=== PATIENT | female | born 1985 | race Two or more races ===

== ENCOUNTER 2020-11-04 15:09 | Outpatient (REF) | payer BC, SELFPAY | END 2020-11-04 15:10 | disposition home or self-care (01) | LOC: HO.LAB 15:09 | PROVIDERS: Visit Provider Internal Medicine | DX: Z20.822 Contact with and (suspected) exposure to COVID-19 (principal) | CPT/HCPCS: 36415; C9803; U0003 ==

== ENCOUNTER 2022-09-01 11:57 | Outpatient (REF) | payer BC, SELFPAY ==
--- NOTE | ~2022-09-01 | US_ITS ---
EXAMINATION: US OBSTETRICAL ULTRASOUND CLINICAL INFORMATION: Hemorrhage are seen in the . COMPARISON: None. LMP: 07/09/2022. Gestational age by maternal dates is 7 weeks 5 days. Estimated date of delivery by maternal dates is 2022. TECHNIQUE: Transabdominal ultrasound Department studded protocol. FINDINGS: There is a single intrauterine gestational sac measuring to 3.3 x 1.2 x 2.1 cm, there is however no pole or heart motion, no yolk sac, raising concern for possible pseudogestational sac or partial miscarriage. MATERNAL ADNEXA: There is a simple cyst in the left ovary 4.5 x 4.4 x 4.8 cm. There is complex cystic structure in the right ovary measuring 4 x 2.9 x 2.9 cm, this has some internal echo and peripheral vascular flow, although could be corpus luteal cyst cannot rule out the possibility of ectopic in the right clinical setting. US/US OB pelvic and transvaginal IMPRESSION: 1. Intrauterine cystic structure could be a gestational sac however no pole found, concerning for possible partial miscarriage, failed versus pseudogestational sac. 2. Complex cystic structure in the right adnexa with peripheral vascularity and internal echo, this could be exophytic corpus luteal cyst versus less likely ECTOPIC . Clinical correlation recommended, Attention to short-term follow-up ultrasound.. (Referring physician staff is being called, to be alerted of the above findings and recommendations.) DC
[2022-09-01 15:13] LABS: HCG Quantitative 50423 mIU/mL
[2022-09-01 17:25] LABS: CT PCR NOT DETECTED (Not Detect.); NG PCR NOT DETECTED (Not Detect.)
[2022-09-02 10:15] LABS: BV Int Neg Control Negative (Negative); BV Int Pos Control Positive (Positive)
[2022-09-03 23:47] LABS: HPV mRNA E6/E7 rflx Not Detected (Not Detected)
== END 2022-09-01 11:58 | disposition home or self-care (01) ==
LOC: HO.LNP 11:57
PROVIDERS: Visit Provider Advanced Practice Midwife
DX: O20.9 Hemorrhage in early pregnancy, unspecified (principal)
CPT/HCPCS: 76801; 76817; 84702; 86850; 86900; 87480; 87491; 87510; 87591; 87624; 87660; 88142

== ENCOUNTER 2022-09-01 12:37 | Outpatient (REF) | payer BC, SELFPAY | END 2022-09-01 12:38 | disposition home or self-care (01) | LOC: HO.US 12:37 | PROVIDERS: Visit Provider Advanced Practice Midwife | DX: Z13.89 Encounter for screening for other disorder (principal) ==

== ENCOUNTER 2022-09-03 08:46 | Outpatient (REF) | payer BC, SELFPAY ==
--- NOTE | ~2022-09-03 | US_ITS ---
EXAMINATION: US OBSTETRICAL ULTRASOUND CLINICAL INFORMATION: Questionable ectopic . HCG level 56,000, previously 50,000. COMPARISON: 09/01/2022. LMP: 07/09/2022. Gestational age by maternal dates is 8 weeks, 0 days. TECHNIQUE: Transabdominal and transvaginal imaging of the pelvic viscera performed utilizing grayscale and color Doppler technique with spectral analysis. FINDINGS: There is intrauterine gestational sac measuring 3.0 x 2.2 x 2.0 cm for a mean sac diameter of 2.35 cm corresponding to 7 weeks, 3 days. Previously, the gestational sac measures 3.3 x 1.2 x 2.1 cm for gestational age of 7 weeks, 1 days. No yolk sac or embryo is identified. Similar-appearing 1.4 cm thick-walled cystic structure in the right adnexa most compatible with a corpus luteum. There is a cyst containing low-level internal echoes within or adjacent to the right ovary as well, stable in size measuring approximately 3.5 x 1.7 x 3.0 cm, previously 4.5 x 3.5 x 2.4 cm. The right ovary is splayed around this cyst measuring 4.7 x 2.7 x 3.7 cm in total. Left ovary contains a cyst with a small amount of debris measuring 5.3 x 4.2 x 3.8 cm., Slightly smaller than on the prior examination. The left ovary is splayed along the periphery of the cyst. US/US OB pelvic and transvaginal IMPRESSION: * Intrauterine gestational sac redemonstrated, with size which would correspond to a gestational age of 7 weeks, 3 days. At this stage, a yolk sac and pole should be evident. There is no evidence of ectopic . There is a stable corpus luteum in the right ovary. As such, I suspect blighted ovum * No maternal adnexal mass or pelvic ascites.
== END 2022-09-03 08:47 | disposition home or self-care (01) ==
LOC: HO.US 08:46
PROVIDERS: PCP Internal Medicine Cardiovascular Disease; Visit Provider Obstetrics & Gynecology
DX: Z34.91 Encounter for supervision of normal pregnancy, unspecified, first trimester (principal); Z3A.08 8 weeks gestation of pregnancy
CPT/HCPCS: 36415; 76801; 76817; 84702

== ENCOUNTER 2022-09-08 10:05 | Outpatient (REF) | payer BC, SELFPAY ==
[2022-09-08 11:07] LABS: HCG Quantitative 9643 mIU/mL
== END 2022-09-08 10:06 | disposition home or self-care (01) ==
LOC: HO.LAB 10:05
PROVIDERS: PCP Internal Medicine; Visit Provider Obstetrics & Gynecology
DX: O02.1 Missed abortion (principal)
CPT/HCPCS: 36415; 84702

== ENCOUNTER 2022-09-27 13:46 | Outpatient (REF) | payer BC, SELFPAY ==
[2022-09-27 14:58] LABS: HCG Quantitative 103 mIU/mL
== END 2022-09-27 13:47 | disposition home or self-care (01) ==
LOC: HO.LAB 13:46
PROVIDERS: Visit Provider Obstetrics & Gynecology
DX: O02.1 Missed abortion (principal)
CPT/HCPCS: 36415; 84702

== ENCOUNTER 2022-10-13 15:45 | Outpatient (REF) | payer BC, SELFPAY ==
[2022-10-13 17:43] LABS: HCG Quantitative 6 mIU/mL
== END 2022-10-13 15:46 | disposition home or self-care (01) ==
LOC: HO.LAB 15:45
PROVIDERS: PCP Internal Medicine; Visit Provider Obstetrics & Gynecology
DX: O02.1 Missed abortion (principal)
CPT/HCPCS: 36415; 84702

== ENCOUNTER 2022-11-01 14:43 | Outpatient (REF) | payer BC, SELFPAY ==
[2022-11-01 15:42] LABS: HCG Quantitative < 2 mIU/mL
== END 2022-11-01 14:44 | disposition home or self-care (01) ==
LOC: HO.LAB 14:43
PROVIDERS: PCP Internal Medicine; Visit Provider Obstetrics & Gynecology
DX: O03.9 Complete or unspecified spontaneous abortion without complication (principal)
CPT/HCPCS: 36415; 84702

== ENCOUNTER 2023-09-26 09:20 | Outpatient (AMB) | payer OTHER, SELFPAY ==
[2023-09-26 09:29] VITALS: BP 140/84; BMI 29.4
--- NOTE | 2023-09-26 09:29 | MHC.OFFVIS ---
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 No complaints. Last Pap/HPV negative in 09/07 PFSH Family History Mother Rheumatoid arthritis Maternal Grandfather HTN (hypertension) Alcoholism Social History Household Members: Spouse Housing: House Alcohol intake: current Alcohol intake frequency: holidays/special occasions only Patient Tobacco Use Status: Never used Tobacco service: No Current occupational status: employed Current occupation: [employer] Sexual orientation: Straight/Heterosexual Gender identity: Female Female Reproductive History Menstrual Age of Menarche: 15 Duration of menses: 3-5 days Date of last menstrual period: 09/07/23 control method: none Total pregnancies: 1 Ab spontaneous: 1 Date of last pap smear: 09/02/22 (negative) History of abnormal pap smear: Yes (2016) Review of Systems Const All systems reviewed & are unremarkable except as noted in HPI and below Card Reports as per HPI Resp Reports as per HPI GI Reports as per HPI and Reports no additional complaints Reports as per HPI Physical Exam Vital Signs: BMI result Body Mass Index 29.4 Const General: cooperative, healthy appearing and comfortable Chest Chest palpation & inspection: normal inspection of the chest and normal palpation of entire chest wall Breast/axilla inspection: normal inspection of the breasts and normal inspection of the axillae Breast/axilla palpation: normal palpation of the breasts, normal palpation of the axillae and no axillary lymphadenopathy Resp Effort & Inspection: normal respiratory effort Auscultation: clear to auscultation bilaterally Percussion: percussion normal Cardio Palpation: normal PMI Rate: regular rate Rhythm: regular rhythm Heart sounds: no murmurs and no rubs Peripheral pulses: Peripheral pulses 2+ throughout GI Inspection: Yes normal to inspection Palpation (GI): Soft to palpation, nontender, no guarding, not rigid and No hepatosplenomegaly present Percussion: Yes normal to percussion Auscultation: normal bowel sounds Rectal Exam - Female: deferred General: Yes bladder normal to palpation External Female Exam: No lesion Speculum Exam - Vagina: normal appearance of the vagina, normal palpation, normal vaginal discharge and not erythematous Speculum Exam - Cervix: normal appearance of the cervix and normal palpation Bimanual exam- vagina & uterus: normal bimanual exam, normal palpation, uterine size normal, bladder normal to palpation, consistency normal and normal palpation Bimanual Exam- Adnexa, other: normal adnexae, no masses and no tenderness Assessment & Plan Assessment & Plan (1) Well woman exam: Code(s): Z01.419 - Encounter for gynecological examination (general) (routine) without abnormal findings Plan: Cotesting not indicated this year. Counseled the patient about the recommended dietary allowance of 1000 mg of Calcium & 600 IU of vitamin D. The patient was instructed to perform monthly self-breast exams and to schedule an annual exam in a year; All questions answered and the patient verbalized understanding. Instructed the patient to schedule annual exam in a year Medications: Discontinued doxylamine succinate (Unisom (doxylamine)) Discontinued Reason: Patient no longer taking 25 mg PO BEDTIME PRN 30 tabs 3RF sleep pyridoxine (vitamin B6) (Vitamin B-6) may take every 6-8 hours for nausea Discontinued Reason: Patient no longer taking 25 mg PO TID PRN 90 tabs 3RF nausea and vomiting misoprostol Insert 800 mcg vaginal dose, 24 hours after Mifepristone dose by mouth Discontinued Reason: Patient no longer taking 800 mcg (4 x 200 mcg) vaginal ONCE 1 day 4 tabs 0RF Coding Level of Care Code Est Pt Prev Care 18-39y(30824) Diagnoses Well woman exam Z01.419
== END 2023-09-26 09:49 | disposition home or self-care (01) ==
PROVIDERS: Visit Provider Obstetrics & Gynecology
DX: Z01.419 Encounter for gynecological examination (general) (routine) without abnormal findings (principal)
CPT/HCPCS: 99395

== ENCOUNTER → 2023-09-26 09:20 | Outpatient (BNVA) | payer OTHER, SELFPAY | PROVIDERS: Visit Provider Obstetrics & Gynecology | DX: Z01.419 Encounter for gynecological examination (general) (routine) without abnormal findings (principal) | CPT/HCPCS: 99395 ==

== ENCOUNTER 2023-10-18 11:01 | Outpatient (AMB) | payer OTHER, SELFPAY ==
--- NOTE | 2023-10-18 11:02 | A.OFFVIS_ITS ---
Intake Vital Signs 10/18/23 11:03 Height 5 ft 6 in Weight 182 lb BMI 29.4 BP 128/82 Blood Pressure Location Rt brachial Position Sitting Intake Visit Reasons: follow up Extrusion Die Template Maker Required: No Allergies No Known Allergies Allergy (Verified 10/18/23 11:06) HPI HPI Comments History of Present Illness Details The patient is presenting c/o inability to conceive over the last year in spite of frequent adequate intercourse. Her periods are regular and non- painful, no other complaints. PFSH Family History Mother Rheumatoid arthritis Maternal Grandfather HTN (hypertension) Alcoholism Social History Household Members: Spouse Housing: House Alcohol intake: current Alcohol intake frequency: holidays/special occasions only Patient Tobacco Use Status: Never used Tobacco service: No Current occupational status: employed Current occupation: [employer] Sexual orientation: Straight/Heterosexual Gender identity: Female Female Reproductive History Menstrual Age of Menarche: 15 Review of Systems Const All systems reviewed & are unremarkable except as noted in HPI and below Reports as per HPI and Reports no additional complaints GI Reports no additional complaints Reports no additional complaints Physical Exam Vital Signs: Last Vital Signs BP 128/82 10/18/23 11:03 BMI result Body Mass Index 29.4 Assessment & Plan Assessment & Plan (1) Infertility, female: Code(s): N97.9 - Female infertility, unspecified Plan: Discussed with the patient the different causes and the workup for infertility. semen analysis order for the patient's partner was given to the patient. Instructions given the patient to call day 1 of her next cycle to schedule a hysterosalpingogram, to buy over the counter LH ovulation predictor test for the coming 3 months in an effort to time intercourse and document ovulation. vitamin 1 tablet p.o. q.d. recommended. All questions answered, the patient verbalized understanding Orders: Orders FL hysterosalpingography Today N97.9 - Female infertility, unspecified Coding Level of Care Code Est Pt Level 3 (38861) Diagnoses Infertility, female N97.9
[2023-10-18 11:03] VITALS: BP 128/82; BMI 29.4
== END 2023-10-18 11:37 | disposition home or self-care (01) ==
LOC: HO.HWS 11:01
PROVIDERS: PCP Internal Medicine; Visit Provider Obstetrics & Gynecology
DX: N97.9 Female infertility, unspecified (principal)
CPT/HCPCS: 99213

== ENCOUNTER → 2023-10-18 11:01 | Outpatient (BNVA) | payer OTHER, SELFPAY | PROVIDERS: PCP Internal Medicine; Visit Provider Obstetrics & Gynecology | DX: N97.9 Female infertility, unspecified (principal) | CPT/HCPCS: 99212 ==

== ENCOUNTER 2023-11-03 11:35 | Outpatient (AMB) | payer OTHER, SELFPAY ==
--- NOTE | 2023-11-03 11:43 | MHC.OFFVIS ---
Intake Intake Visit Reasons: Hysterosalpimgogram Allergies No Known Allergies Allergy (Verified 10/18/23 11:06) HPI HPI Comments History of Present Illness Details Here for hysterosalpingogram PFSH Family History Mother Rheumatoid arthritis Maternal Grandfather HTN (hypertension) Alcoholism Social History Household Members: Spouse Housing: House Alcohol intake: current Alcohol intake frequency: holidays/special occasions only Patient Tobacco Use Status: Never used Tobacco service: No Current occupational status: employed Current occupation: [employer] Sexual orientation: Straight/Heterosexual Gender identity: Female Female Reproductive History Menstrual Age of Menarche: 15 Office Procedures Hysterosalpingography Hysterosalpingography Details: Urine test done in the office was negative. Time-out for HSG procedure was done. Speculum was placed in patient's vagina, vagina and cervix were prepped with betadine. A tenaculum was applied to the cervix. A primed 5 Barb[place] HSG catheter was introduced into the cervix and balloon inflated. Speculum was removed. Contrast was injected under flouroscopy revealing a normal cavity and normal left fallopian tube fill and spill, right fallopian tube blockage with no evidence of fill or spill. All instruments were removed from vagina and aftercare instructions were given. Instructions given to patient to call in case of fever above 100.4 severe abdominal/ pain, nausea and/or vomiting, heavy vaginal bleeding. This note was generated with a voice recognition program. Some errors may have been overlooked during the review of this note. Sometimes these errors may affect the content or meaning of a given sentence. HSG CPT code: 52002-[id number] Results AMB Test Urine AMB Test Urine Negative Last Edit by Minna Lugo CMA on 11/03/23 11:43 Results Reviewed Results Reviewed: Laboratory Last Values [facility]st Clinic Negative 11/03/23 11:42 Assessment & Plan Assessment & Plan (1) Infertility, female: Code(s): N97.9 - Female infertility, unspecified Plan: Hysterosalpingogram done in Radiology, see procedure note Instructions given to patient to call in case of fever above 100.4, pelvic pain, nausea or vomiting, vaginal bleeding and to schedule a follow-up appointment in 2 weeks Orders: Orders AMB HCG Urine Test Today Z32.02 - Encounter for test, result negative Coding Level of Care Code Procedure Only Diagnoses Infertility, female N97.9 CPT Codes Hysterosalpingography - HSG CPT code: 56818-[id number] ([id number])
== END 2023-11-03 13:40 | disposition home or self-care (01) ==
PROVIDERS: PCP Internal Medicine; Visit Provider Obstetrics & Gynecology
DX: N97.9 Female infertility, unspecified (principal); Z32.02 Encounter for pregnancy test, result negative
CPT/HCPCS: 58340

== ENCOUNTER 2023-11-03 11:41 | Outpatient (REF) | payer OTHER, SELFPAY ==
--- NOTE | ~2023-11-03 | FL_ITS ---
Examination: Hysterosalpingogram Indications: Infertility Comparison: None Technique: Intrauterine contrast injection was performed by FURNACE COMBUSTION ANALYST Dr. Seo under fluoroscopy with the radiology physician assistant teacher present. Findings: On the fluoroscopy images, there is a balloon inflated catheter within the uterine cavity. Contrast opacifies the uterine cavity and the left fallopian tube. The right fallopian tube is visualized, with possible faint spillage of intraperitoneal contrast seen overlying the S1 vertebral body. This is not definite. There is contrast spillage from the left fallopian tube into the peritoneum. FLUOROSCOPY TIME: 1 minute 15 seconds DOSE AREA PRODUCT: 682 uGy-m2 (microgray-meter squared) FL/FL hysterosalpingography IMPRESSION: 1. The left fallopian tube is patent. 2. There may be an obstructed right fallopian tube although a faint amount of contrast is seen overlying the right S1 vertebral body, which likely came from the right fallopian tube. If this is the case, the right fallopian tube is likely patent. The examination could be repeated if there is continued infertility. This procedure was performed by Cabrera Bennett PA-C, and supervised by Dr. Toussaint
== END 2023-11-03 11:42 | disposition home or self-care (01) ==
LOC: HO.XRAY 11:41
PROVIDERS: PCP Internal Medicine; Visit Provider Obstetrics & Gynecology
DX: N97.9 Female infertility, unspecified (principal); Z32.02 Encounter for pregnancy test, result negative
CPT/HCPCS: 58340; 74740; 81025

== ENCOUNTER → 2023-11-03 11:43 | Outpatient (BNV) | payer OTHER, SELFPAY | PROVIDERS: PCP Internal Medicine; Visit Provider Physician Assistant Surgical | DX: N97.9 Female infertility, unspecified (principal) | CPT/HCPCS: 74740 ==

== ENCOUNTER 2023-11-21 14:44 | Outpatient (AMB) | payer OTHER, SELFPAY ==
--- NOTE | 2023-11-21 14:51 | MHC.OFFVIS ---
Intake Vital Signs 11/21/23 14:56 Height 5 ft 6 in Weight 182 lb BMI 29.4 BP 124/80 Intake Visit Reasons: post op Allergies No Known Allergies Allergy (Verified 10/18/23 11:06) HPI HPI Comments History of Present Illness Details Presenting for follow-up post hysterosalpingogram which showed right fallopian tube blockage, the official report not available yet PFSH Family History Mother Rheumatoid arthritis Maternal Grandfather HTN (hypertension) Alcoholism Social History Household Members: Spouse Housing: House Alcohol intake: current Alcohol intake frequency: holidays/special occasions only Patient Tobacco Use Status: Never used Tobacco service: No Current occupational status: employed Current occupation: [employer] Sexual orientation: Straight/Heterosexual Gender identity: Female Female Reproductive History Menstrual Age of Menarche: 15 Review of Systems Const All systems reviewed & are unremarkable except as noted in HPI and below Reports as per HPI and Reports no additional complaints GI Reports no additional complaints Reports no additional complaints Physical Exam Vital Signs: Last Vital Signs BP 124/80 11/21/23 14:56 BMI result Body Mass Index 29.4 Assessment & Plan Assessment & Plan (1) Infertility, female: Code(s): N97.9 - Female infertility, unspecified Plan: Discussed with the patient the finding on hysterosalpingogram, recommended urine LH ovulation test and semen analysis and will refer to reproductive endocrinology for further management, the patient was instructed to call back whenever the patient is ready for the referral. All questions answered, the patient verbalized understanding Coding Level of Care Code Est Pt Level 3 (88676) Diagnoses Infertility, female N97.9
[2023-11-21 14:56] VITALS: BP 124/80; BMI 29.4
== END 2023-11-21 16:09 | disposition home or self-care (01) ==
LOC: HO.HWS 14:44
PROVIDERS: PCP Internal Medicine; Visit Provider Obstetrics & Gynecology
DX: N97.9 Female infertility, unspecified (principal)
CPT/HCPCS: 99213

== ENCOUNTER → 2023-11-21 14:44 | Outpatient (BNVA) | payer OTHER, SELFPAY | PROVIDERS: PCP Internal Medicine; Visit Provider Obstetrics & Gynecology | DX: N97.1 Female infertility of tubal origin (principal) | CPT/HCPCS: 99212 ==

== ENCOUNTER 2024-03-28 09:42 | Outpatient (REF) | payer OTHER, SELFPAY ==
[2024-03-28 10:43] LABS: Alanine Aminotransferase 16 U/L (0-31); Albumin Level 4.3 g/dL (3.5-5.0); Alkaline Phosphatase 46 U/L (39-117); Anion Gap 13 (12-20); Aspartate Amino Transferase 19 U/L (5-31); Bilirubin Total 0.7 mg/dL (0.0-1.0); Blood Urea Nitrogen 13 mg/dL (9-16); Calcium 9.9 mg/dL (8.4-10.2); Carbon Dioxide 23 mmol/L (22-29); Chloride 104 mmol/L (96-108); Cholesterol 210 mg/dL (<200); Estimated Glomerular Filt Rate > 60; Glucose Random 90 mg/dL (60-115); HDL Cholesterol 52 mg/dL (>40); LDL Cholesterol Calculated 144 mg/dL (<100); Potassium 3.9 mmol/L (3.3-5.1); Sodium 136 mmol/L (135-145); Total Protein 8.1 g/dL (6.5-8.0); Triglycerides 72 mg/dL (<150)
[2024-03-28 10:59] LABS: Thyroid Stimulating Hormone 1.83 uIU/mL (0.32-4.0)
== END 2024-03-28 09:43 | disposition home or self-care (01) ==
LOC: HO.LAB 09:42
PROVIDERS: PCP Internal Medicine; Visit Provider Internal Medicine
DX: Z00.00 Encounter for general adult medical examination without abnormal findings (principal); I10 Essential (primary) hypertension; N97.1 Female infertility of tubal origin; R63.5 Abnormal weight gain; Z13.31 Encounter for screening for depression
CPT/HCPCS: 36415; 80053; 80061; 84443

== ENCOUNTER 2024-10-23 10:44 | Outpatient (AMB) | payer OTHER, SELFPAY ==
--- NOTE | 2024-10-23 10:50 | MHC.OFFVIS ---
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 No complaints. Last Pap/HPV was negative in 09/07 [facility] Family History Mother Rheumatoid arthritis Maternal Grandfather HTN (hypertension) Alcoholism Social History Household Members: Spouse Housing: House Alcohol intake: current Alcohol intake frequency: holidays/special occasions only Patient Tobacco Use Status: Never used Tobacco service: No Current occupational status: employed Current occupation: [employer] Sexual orientation: Straight/Heterosexual Gender identity: Female Female Reproductive History Menstrual Age of Menarche: 15 Date of last menstrual period: 10/06/24 Date of last pap smear: 09/02/22 Review of Systems Const All systems reviewed & are unremarkable except as noted in HPI and below Card Reports as per HPI Resp Reports as per HPI GI Reports as per HPI and Reports no additional complaints Reports as per HPI Physical Exam Vital Signs: Last Vital Signs BP 118/64 10/23/24 10:56 BMI result Body Mass Index 29.2 Const General: cooperative, healthy appearing and comfortable Chest Chest palpation & inspection: normal inspection of the chest and normal palpation of entire chest wall Breast/axilla inspection: normal inspection of the breasts and normal inspection of the axillae Breast/axilla palpation: normal palpation of the breasts, normal palpation of the axillae and no axillary lymphadenopathy Resp Effort & Inspection: normal respiratory effort Auscultation: clear to auscultation bilaterally Percussion: percussion normal Cardio Palpation: normal PMI Rate: regular rate Rhythm: regular rhythm Heart sounds: no murmurs and no rubs Peripheral pulses: Peripheral pulses 2+ throughout GI Inspection: Yes normal to inspection Palpation (GI): Soft to palpation, nontender, no guarding, not rigid and No hepatosplenomegaly present Percussion: Yes normal to percussion Auscultation: normal bowel sounds Rectal Exam - Female: deferred General: Yes bladder normal to palpation External Female Exam: No lesion Speculum Exam - Vagina: normal appearance of the vagina, normal palpation, normal vaginal discharge and not erythematous Speculum Exam - Cervix: normal appearance of the cervix and normal palpation Bimanual exam- vagina & uterus: normal bimanual exam, normal palpation, uterine size normal, bladder normal to palpation, consistency normal and normal palpation Bimanual Exam- Adnexa, other: normal adnexae, no masses and no tenderness Assessment & Plan Assessment & Plan (1) Well woman exam: Code(s): Z01.419 - Encounter for gynecological examination (general) (routine) without abnormal findings Category: Medical Plan: Cotesting not indicated this year. Counseled the patient about the recommended dietary allowance of 1000 mg of Calcium & 600 IU of vitamin D. The patient was instructed to perform monthly self-breast exams and to schedule an annual exam in a year; All questions answered and the patient verbalized understanding. Instructed the patient to schedule annual exam in a year Coding Level of Care Code Est Pt Prev Care 18-39y(42929) Diagnoses Well woman exam Z01.419
[2024-10-23 10:56] VITALS: BP 118/64; BMI 29.2
== END 2024-10-23 11:15 | disposition home or self-care (01) ==
LOC: HO.HWS 10:44
PROVIDERS: PCP Internal Medicine; Visit Provider Obstetrics & Gynecology
DX: Z01.419 Encounter for gynecological examination (general) (routine) without abnormal findings (principal)
CPT/HCPCS: 99395; 99459

== ENCOUNTER 2024-12-08 10:54 | Outpatient (REF) | payer OTHER, SELFPAY ==
--- OUTSIDE RECORDS SUMMARY | 2024-12-08 10:58 | XMS_ITS ---
Author Organization [facility] Address [address] [place] [id number] Care Team Providers Care Internal Audit Consultant Name Role Phone Gayjaida Kathryn Primary Care Provider Unavailab Sarwat Yun [phone] ALLERGIES No Known Allergies REASON FOR VISIT Patient presents today for HEP B IMMUNIZATIONS Vaccine Route Administration Date Status Comme nts Influenza Unknown 11/30/2024 Refused SOCIAL HISTORY Tobacco Use: Social History Observation Description Date Details (start date - stop date) Never Smoker NA - NA Sex Assigned At : Social History Observation Description Sex Assigned At Unknown Tobacco Use/Smoking Question Answer Notes Patient is a nonsmoker Alcohol Screen Question Answer Notes Did you have a drink containing alcohol in the p ast year? No Points 0 Interpretation Negative PROBLEMS Problem Type ICD Code Onset Dates Problem Status W/U Status Risk SNOMED Code Notes Problem Chronic hepatitis B (B18.1) Active confirmed Chronic type B viral hepatitis (24030181) VITAL SIGNS BMI 29.55 kg/m2 11/30/2024 Blood pressure systolic 000 mm Hg 11/30/19 25 Blood pressure diastolic 00 mm Hg 025 Height 5 ft 6 in in 11/30/2024 Temperature 96.9 degrees Fahrenheit 11/30/19 25 Weight 183 lb 2 oz lbs 11/30/2024 Encounters Encounter Location Date Provider Diagnosis [facility] [address] [place] [phone] 11/30/2024 Sarwat Mena Chronic hepatitis B B18.1 ASSESSMENTS Encounter Date Diagnosis Assessment Notes Treatment Notes Treatment Clinical Notes 11/30/2024 Chronic hepatitis B (ICD-10 - B18.1) PLAN OF TREATMENT Pending Test Test Name Order Date CHEM 7 PROFILE 11/30/2024 LIVER PROFILE 11/30/2024 CBC w DIFF 11/30/2024 ALPHA-FETOPROTEIN,TUMOR MARKER HEPATITIS B GENOTYPE 11/30/2024 Prothrombin Time INR 11/30/2024 Liver Fibrosis Pnl 11/30/2024 Hepatitis A Antibody IgG 11/30/2024 Hepatitis BE Antibody 11/30/2024 Hepatitis BE Antigen 11/30/2024 Hepatitis B Viral DNA Qn 11/30/2024 Hepatitis Delta Antibody 11/30/2024 US abdomen comp w elastography Hepatitis B Profile 11/30/2024 HIV Ab/Ag 11/30/2024 Hepatitis C Antibody Reflex 11/30/2024 Next Appt Details Follow Up: 3-4 months, Greg n: Provider Name:Sarwat Mena , 03/27/2025 01:40:00 PM, [address] [facility], [address], [place], [phone],
--- OUTSIDE RECORDS SUMMARY | 2024-12-08 10:58 | XMS_ITS | Patient Health Record ---
Author Organization [facility] Address [address] [place] [phone] Care Team Providers Care Javascript Ui Developer Name Role Phone Kathryn Martino Primary Care Provider Unavailab Sarwat Yun [phone] ALLERGIES No Known Allergies REASON FOR REFERRAL No Information IMMUNIZATIONS Vaccine Route Administration Date Status Comme [...] Active confirmed Chronic type B viral hepatitis (42712353) VITAL SIGNS Temperature 96.9 degrees Fahrenheit 11/30/2024 Blood pressure diastolic 00 mm Hg 11/30/2024 Height 5 ft 6 in in 11/30/2024 Blood pressure systolic 000 mm Hg 11/30/2024 Weight 183 lb 2 oz lbs 11/30/2024 BMI 29.55 kg/m2 11/30/2024 Encounters Encounter Location Date Provider Diagnosis [facility] [address] [place] [phone] 11/30/2024 Sarwat Mena Chronic hepatitis B B18.1 [...] C Antibody Reflex 11/30/2024 Next Appt Details Provider Name:Sarwat Brock Mena , 03/27/2025 01:40:00 PM, [address] [facility], [address], [place], [phone], Insurance Providers Payer Name Payer Address Payer Phone Subscriber Number Group Number Insured Name Patient Relationship to Insured Coverage Start Date Coverage End Date [facility] [address] [place] [phone] [id number] OLEG LINDQUIST Self - patient is the insured MEDICAL (GENERAL) HISTORY Surgical History Surgery Date(Month/Year)
[2024-12-08 11:16] LABS: MANUAL DIFF FLAG NO
[2024-12-08 11:23] LABS: Prothrombin Time 11.4 SEC (10.9-12.4)
[2024-12-08 11:26] LABS: Basophils Percent Auto 0.8 % (0-2); Eosinophils Absolute Auto 0.5 X10*3/uL (0.0-0.4); Hematocrit 38.6 % (37.0-47.0); Hemoglobin 12.3 g/dl (12.0-16.0); Lymphocytes Percent Auto 39.8 % (20-40); Mean Corpuscular HGB Conc 31.9 g/dl (31.0-35.0); Mean Corpuscular Volume 84.8 fL (80.0-98.0); Mean Platelet Volume 10.8 fL (9.4-12.3); Monocytes Absolute Auto 0.4 X10*3/uL (0.1-1.2); Monocytes Percent Auto 7.2 % (2-11); Neutrophils Absolute Auto 2.1 x10*3/uL (2.0-8.3); Neutrophils Percent Auto 42.2 % (45-73); Platelet Count 226 X10*3/uL (160-400); Red Blood Count 4.55 X10*6/uL (4.20-5.50); Red Cell Distribution Width 14.6 % (11.0-16.0)
[2024-12-08 12:08] LABS: Alanine Aminotransferase 15 U/L (0-31); Albumin Level 4.1 g/dL (3.5-5.0); Alkaline Phosphatase 47 U/L (39-117); Anion Gap 11 (12-20); Aspartate Amino Transferase 24 U/L (5-31); Bilirubin Direct 0.2 mg/dL (0.0-0.5); Bilirubin Total 0.8 mg/dL (0.0-1.0); Blood Urea Nitrogen 11 mg/dL (9-16); Calcium 9.8 mg/dL (8.4-10.2); Carbon Dioxide 23 mmol/L (22-29); Chloride 108 mmol/L (96-108); Estimated Glomerular Filt Rate > 60; Glucose Random 100 mg/dL (60-115); Potassium 4.2 mmol/L (3.3-5.1); Sodium 138 mmol/L (135-145); Total Protein 8.2 g/dL (6.5-8.0)
[2024-12-08 12:21] LABS: Hepatitis A Antibody IgG REACTIVE (Nonreactive); ~Hepatitis A Antibody IgG 9.29 S/CO (0.00-0.99)
[2024-12-08 12:22] LABS: HBc Num1 8.03 S/CO (0.00-0.79); HBsAGNum1 4611.39 S/CO (0.00-0.99); HIV AB/AG Nonreactive (Nonreactive); HIV Num 1 0.15 S/CO (0.00-0.99); ~HepC Num1 0.14 S/CO (0.00-0.79); ~Hepatitis B Surface Antibody NONREACTIVE (Nonreactive); ~Hepatitis C Antibody Nonreactive (Nonreactive)
[2024-12-08 13:11] LABS: HBc Num3 8.06 S/CO; HBsAGNum2 Reactive; HBsAGNum3 Reactive; Hepatitis B Core Antibody Reactive (Nonreactive)
[2024-12-08 13:12] LABS: Hepatitis B Surface Antigen Retest CNFM (Negative)
[2024-12-10 08:29] LABS: Hepatitis B Core Antibody IgM NON-REACTIVE (NON-REACTIVE)
[2024-12-10 13:23] LABS: Alpha Fetoprotein 1.9 ng/mL
[2024-12-10 22:53] LABS: Hepatitis BE Antibody REACTIVE (NON-REACTIVE); Hepatitis BE Antigen NON-REACTIVE (NON-REACTIVE)
[2024-12-11 12:49] LABS: HBsAG REACTIVE
[2024-12-11 23:03] LABS: Hepatitis B Viral DNA Qn-IU/mL 2110 IU/mL
[2024-12-12 18:13] LABS: Hepatitis Delta Antibody NEGATIVE
[2024-12-13 17:44] LABS: FIB-ALT 11 U/L (6-29); FIB-Alpha-2-Macroglobulin 193 mg/dL (106-279); FIB-Apolipoprotein A1 169 mg/dL (101-198); FIB-GGT 15 U/L (3-50); FIB-Haptoglobin 75 mg/dL (43-212); FIB-Total Bilirubin 0.7 mg/dL (0.2-1.2); Liver Fibrosis Score 0.13; Liver Fibrosis Stage F0; Nec Inflam Act Grade A0; Nec Inflam Act Score 0.02; Reference ID 5357429
[2024-12-17 21:03] LABS: BCP Mutations DETECTED; HBV Genotype A; Polymerase Mutations NOT DETECTED; Precore Mutations NOT DETECTED
[2024-12-21 13:04] LABS: Hepatitis B Viral DNA QN Log 3.32 (H)
== END 2024-12-08 10:55 | disposition home or self-care (01) ==
LOC: HO.LAB 10:54
PROVIDERS: PCP Internal Medicine; Visit Provider Internal Medicine
DX: B18.1 Chronic viral hepatitis B without delta-agent (principal)
CPT/HCPCS: 36415; 80048; 80076; 81596; 82105; 85025; 85610; 86692; 86704; 86705; 86706; 86707; 86708; 86803; 87340; 87350; 87389; 87912

== ENCOUNTER 2025-01-02 08:00 | Outpatient (REF) | payer OTHER, SELFPAY ==
--- NOTE | ~2025-01-02 | US_ITS ---
EXAMINATION: US ABDOMEN COMPLETE WITH LIVER ELASTOGRAPHY HISTORY: HEP B TECHNIQUE: Real-time grayscale ultrasound imaging of the abdomen was performed and images were reviewed. COMPARISON: There are no prior studies for comparison. FINDINGS: Liver: The right lobe of the liver measures 12.9 cm in size. The left lobe of the liver measures 0.6 cm in size. The liver demonstrates normal homogeneous echotexture. No focal mass or intrahepatic biliary ductal dilatation is identified. There is normal hepatopedal flow in the portal vein. Ultrasound elastography of the liver was performed with 10 separate measurements of the liver parenchyma with the patient in the supine position. Measurements were obtained approximately 2 cm below Meredith's capsule and perpendicular to the capsule. Images are of satisfactory quality. The median shear wave velocity is 1.52 m/s. The interquartile range/median (IQR/median) is 0.15. Gallbladder and biliary tree: The gallbladder is unremarkable, without evidence of calculi, wall thickening, or pericholecystic fluid. There is no sonographic Reid sign. The common bile duct is normal in caliber measuring 4 mm. Kidneys: The right kidney measures 11.7 cm in length. The left kidney measures 10.4 cm in length. The kidneys are unremarkable, without evidence of masses, hydronephrosis, or calculi. Pancreas: The pancreatic head, neck, and body are unremarkable. The pancreatic tail is obscured by bowel gas. Spleen: The spleen is normal in size and contour, measuring 9.4 cm in length. Abdominal aorta and inferior vena cava: The visualized portions of the abdominal aorta and inferior vena cava are normal in caliber. There is no free fluid in the abdomen. US/US abdomen comp w elastography IMPRESSION: Unremarkable abdominal ultrasound. The median shear wave velocity in the liver is 1.52 m/s, corresponding to a median liver stiffness of 7.0 kPa. The IQR/median value is 0.5. This is indicative of a poor quality data set, and the estimated liver stiffness may be unreliable. Findings are indicative of a low elastography value which rules out advanced chronic liver disease in asymptomatic patients. REFERENCE: Society of Radiologists in Ultrasound Liver Stiffness Thresholds (2020): LIVER STIFFNESS THRESHOLDS: *Shear wave velocity less than 1.3 m/s (Liver Stiffness equal or less than 5 kPa): High probability of being normal. *Shear wave velocity less than 1.7 m/s (Liver Stiffness less than 9 kPa): In the absence of other known clinical signs, rules out compensated advanced chronic liver disease. *Shear wave velocity between 1.7-2.1 m/s (Liver Stiffness 9-13 kPa): Suggestive of compensated advanced chronic liver disease but need further test for confirmation. *Shear wave velocity between 2.1-2.4 m/s (Liver Stiffness 13-17 kPa): Rules in compensated advanced chronic liver disease. *Shear wave velocity greater than 2.4 m/s (Liver Stiffness over 17 kPa): Suggestive of clinically significant portal hypertension. QUALITY OF DATA SET: *IQR/Median value equal or less than 0.15 implies a quality data set. *IQR/Median value over 0.15 implies a poor quality data set. SIGNIFICANT CHANGE FROM PRIOR EXAM: Significant change if liver stiffness measurement is 10% or greater from prior exam. OTHER CONSIDERATIONS: The stage of liver fibrosis may be overestimated in the setting of acute hepatitis, liver inflammation, elevated liver function tests, hepatic vascular congestion, obstructive cholestasis, non-fasting state, and infiltrative diseases such as amyloidosis and lymphoma. In some patients with NAFLD, the liver stiffness thresholds for compensated advanced chronic liver disease may be lower. In causes other than viral hepatitis and NAFLD, liver stiffness thresholds are not well established. Electronically signed by: Sarwat Pierson MD 01/02/2025 09:06 AM EDT
--- OUTSIDE RECORDS SUMMARY | 2025-01-02 08:04 | XMS_ITS ---
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 No Points 0 Interpretation Negative Section Notes: [place] Nonsmoker; no sig alcohol No substance abuse Problems Problem Type SNOMED Code ICD Code Onset Dates Problem Status W/U Status Risk Notes Problem Chronic type B viral hepatitis (31718037) Chronic hepatitis B (B18.1) Active confirmed Vital Signs Temperature 96.9 degrees Fahrenheit 11/30/19 25 Blood pressure systolic 000 mm Hg 11/30/19 25 Blood pressure diastolic 00 mm Hg 025 Height 5 ft 6 in in 11/30/2024 Weight 183 lb 2 oz lbs 11/30/2024 BMI 29.55 kg/m2 11/30/2024 Encounters Encounter Location Date Provider Diagnosis [facility] [address] [place] [phone] 11/30/2024 Sarwat Mena Chronic hepatitis B B18.1 Assessments Encounter Date Diagnosis (ICD Code) Assessment Notes Treatment Notes Treatment Clinical Notes Section Notes 11/30/2024 Chronic hepatitis B (ICD-10 - B18.1) Plan Of Treatment Pending Test Test Name Order Date CHEM 7 PROFILE 11/30/2024 LIVER PROFILE 11/30/2024 CBC w DIFF 11/30/2024 ALPHA-FETOPROTEIN,TUMOR MARKER 5 HEPATITIS B GENOTYPE 11/30/2024 Prothrombin Time INR 11/30/2024 Liver Fibrosis Pnl 11/30/2024 Hepatitis A Antibody IgG 11/30/2024 Hepatitis BE Antibody 11/30/2024 Hepatitis BE Antigen 11/30/2024 Hepatitis B Viral DNA Qn 11/30/2024 Hepatitis Delta Antibody 11/30/2024 US abdomen comp w elastography Hepatitis B Profile 11/30/2024 HIV Ab/Ag 11/30/2024 Hepatitis C Antibody Reflex 11/30/2024 Next Appt Details Follow Up: 3-4 months, [place]: Provider Name:Sarwat Mena , 03/27/2025 01:40:00 PM, [address] [facility], Suite [facility], [place], [address], Progress Notes * OLEG LINDQUISTDOB:1985 (39 yo F)Acc No.[id number]:11/30/2024 Progress Notes Patient:?OLEG LINDQUIST Provider:?Sarwat Mena MD :1985???Age:39 Y???Sex:Female D ate:11/30/2024 Address:[address] [place] [address] Pcp:Kathryn Martino Subjective: * Chief Complaints: * ???1. Patient presents today for HEP B. * Medical History:?Medical His tory Verified. * Family History:?Father: nico gregory?Mother: alive.? No family history of colon cancer or liver cancer. * Social History:?Tobacco Use:?Tobacco Use/Smoking?Patient is a?nonsmoker.?Drugs/Alcohol:?Alcohol Screen?Did you have a drink containing alcohol in the past year??No,?Points?0,?Interpretation?Negative.?Miscellaneous:?Marital status: . 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 ???[place] Nonsmoker; no sig alcohol No substance abuse. * Medications:?None * Allergies:?N.K.D.A. Objective: * Vitals:?Wt: 183 lb 2 oz, Ht: 5 ft 6 in, BMI:29.55Index, BP: 000/00 mm Hg, Temp: 96.9. Assessment: * Assessment: 1.?Chronic hepatitis B - B18 .1 (Primary)??? Plan: * Treatment: * * Immunizations:? Influenza (Not administered - Refused: Patient decision) * Preventive Medicine:? ??Counseling:?Care goal follow-up plan:?Above Normal BMI Follow-up?Giving encouragement to exercise,?BMI management provided?Yes.? * Follow Up:?3-4 months * * The named appointment provid er may or may not be the originator of this progress note, and it is not deemed complete until electronically signed by the appointment provider. Sign off status: Pending * Provider:?Sarwat Mena MD Date:? 025 Generated for Sandra baig/Fabiana/Bryanitting on:?01/02/2025 08:04 AM EDT
--- OUTSIDE RECORDS SUMMARY | 2025-01-02 08:04 | XMS_ITS ---
Author Organization [facility] Address [address] [place] [address] Care Team Providers Care Ampoule Filler Name Role Phone Kathryn Martino Primary Care Provider Unavailab Sarwat Yun Unavailable [phone] REASON FOR VISIT FYI Encounters Encounter Location Date Provider Diagnosis [facility] [address] [place] [address] 12/26/2024 Sarwat Mena Plan Of Treatment Next Appt Details Provider Name:Sarwat Mena , 03/27/2025 01:40:00 PM, [address], [address], [place], [address], Progress Notes * OLEG LINDQUISTDOB:1985 (39 yo F)Acc No.[id number]:12/26/2024 Patient:?OLEG LINDQUIST :1985???Age:39 Y???Sex:Female Address:[address] [place] [address] [place], [address] * * Date:?
--- OUTSIDE RECORDS SUMMARY | 2025-01-02 08:04 | XMS_ITS | Patient Health Record ---
Author Organization [facility] Address [address] [place] [address] Care Team Providers Care Veneer Cutter Name Role Phone Kathryn Martino Primary Care Provider Unavailab Sarwat Yun [phone] Allergies No Known Allergies Reason For Referral No Information Immunizations Vaccine Route Administration Date Status Comme [...] Interpretation Negative Section Notes: [place] Nonsmoker; no sig alcohol No substance abuse Problems Problem Type SNOMED Code ICD Code Onset Dates Problem Status W/U Status Risk Notes Problem Chronic type B viral hepatitis (39939791) Chronic hepatitis B (B18.1) Active confirmed Vital Signs Temperature 96.9 degrees Fahrenheit 11/30/2024 Blood pressure diastolic 00 mm Hg 11/30/2024 Height 5 ft 6 in in 11/30/2024 Blood pressure systolic 000 mm Hg 11/30/2024 Weight 183 lb 2 oz lbs 11/30/2024 BMI 29.55 kg/m2 11/30/2024 Encounters Encounter Location Date Provider Diagnosis [facility] [address] [place] [phone] 11/30/2024 Sarwat Mena Chronic hepatitis B B18.1 [facility] [address] [place] [phone] 12/26/2024 Sarwat Mena Assessments Encounter Date Diagnosis (ICD Code) Assessment [...] Reflex 11/30/2024 Next Appt Details Provider Name:Sarwat Mena , 03/27/2025 01:40:00 PM, [address] [facility], [address], [place], [address], Insurance Providers Payer Name Payer Address Payer Phone Subscriber Number Group Number Insured Name Patient Relationship to Insured Coverage Start Date Coverage End Date [facility] [address] [facility] [place] [phone] [id number] OLEG LINDQUIST Self - patient is the insured Medical (General) History Surgical History Surgery Date(Month/Year)
== END 2025-01-02 08:01 | disposition home or self-care (01) ==
LOC: HO.US 08:00
PROVIDERS: PCP Internal Medicine; Visit Provider Internal Medicine
DX: B18.1 Chronic viral hepatitis B without delta-agent (principal)
CPT/HCPCS: 76700; 76981

== ENCOUNTER → 2025-01-02 08:02 | Outpatient (BNV) | payer OTHER, SELFPAY | PROVIDERS: PCP Internal Medicine; Visit Provider Radiology Diagnostic Radiology | DX: B19.10 Unspecified viral hepatitis B without hepatic coma (principal) | CPT/HCPCS: 76700 ==

== ENCOUNTER 2025-04-03 14:03 | Outpatient (REF) | payer OTHER, SELFPAY ==
[2025-04-03 15:08] LABS: Appearance Urine Clear; Color Urine Yellow; Glucose Urine UA Negative (Negative); Leukocyte Esterase Urine Large (3+) (Negative); Nitrite Urine Negative (Negative); PH 6.5 (5.0-9.0); Specific Gravity - Urine <= 1.005 (1.005-1.025); UMIC TRIGGER UA YES; Urine Blood Large (3+) (Negative); Urine Ketones Negative (Negative); Urine Protein 30 (1+) mg/dL (Neg-Trace)
[2025-04-03 15:15] LABS: Bacteria Urine None Seen (None Seen); Hyaline Casts Urine 0-2 /LPF (0-2); RBC Urine 0-2 /HPF (0-2); Squamous Epithelial Cell Urine 0-2 /HPF (0-2); WBC Urine >50 /HPF (0-5)
--- OUTSIDE RECORDS SUMMARY | 2025-04-03 16:10 | XMS_ITS | Patient Health Record ---
Author Organization [facility] Address [address] [place] [address] Care Team Providers Care Microfilm Mounter Name Role Phone Kathryn Martino Primary Care Provider Unavailab Sarwat Yun [phone] Allergies No Known Allergies Results Component Value Reference Range Notes US abdomen comp w elastograp hy Reviewed date:01/09/2025 11:25:01 PM Interpretation: Performing Lab: Notes/Report: [address] [address] Ultrasound Report Signed Patient: Sophie Rendon MR#: [id number] : 1985 Acct:[id number] Age/Sex: 39 / F ADM Date: 01/02/25 Loc: HO.US Attending Dr: Sarwat Mena MD Ordering Physician: Sarwat Mena MD Date of Service: 01/02/25 Procedure(s): US abdomen comp w elastography Accession Number(s): [id number] cc: Kathryn Martino MD; Sarwat Mena MD EXAMINATION: US ABDOMEN COMPLETE WITH LIVER ELASTOGRAPHY HISTORY: HEP B TECHNIQUE: Real-time grayscale ultrasound imaging of the abdomen was performed and images were reviewed. COMPARISON: There are no prior studies for comparison. FINDINGS: Liver: The right lobe of the liver measures 12.9 cm in size. The left lobe of the liver measures 0.6 cm in size. The liver demonstrates normal homogeneous echotexture. No focal mass or intrahepatic biliary ductal dilatation is identified. There is normal hepatopedal flow in the portal vein. Ultrasound elastography of the liver was performed with 10 separate measurements of the liver parenchyma with the patient in the supine position. Measurements were obtained approximately 2 cm below Meredith's capsule and perpendicular to the capsule. Images are of satisfactory quality. The median shear wave velocity is 1.52 m/s. The interquartile range/median (IQR/median) is 0.15. Gallbladder and biliary tree: The gallbladder is unremarkable, without evidence of calculi, wall thickening, or pericholecystic fluid. There is no sonographic Reid sign. The common bile duct is normal in caliber measuring 4 mm. Kidneys: The right kidney measures 11.7 cm in length. The left kidney measures 10.4 cm in length. The kidneys are unremarkable, without evidence of masses, hydronephrosis, or calculi. Pancreas: The pancreatic head, neck, and body are unremarkable. The pancreatic tail is obscured by bowel gas. Spleen: The spleen is normal in size and contour, measuring 9.4 cm in length. Abdominal aorta and inferior vena cava: The visualized portions of the abdominal aorta and inferior vena cava are normal in caliber. There is no free fluid in the abdomen. US/US abdomen comp w elastography IMPRESSION: Unremarkable abdominal ultrasound. The median shear wave velocity in the liver is 1.52 m/s, corresponding to a median liver stiffness of 7.0 kPa. The IQR/median value is 0.5. This is indicative of a poor quality data set, and the estimated liver stiffness may be unreliable. Findings are indicative of a low elastography value which rules out advanced chronic liver disease in asymptomatic patients. REFERENCE: Society of Radiologists in Ultrasound Liver Stiffness Thresholds (2020): LIVER STIFFNESS THRESHOLDS: *Shear wave velocity less than 1.3 m/s (Liver Stiffness equal or less than 5 kPa): High probability of being normal. *Shear wave velocity less than 1.7 m/s (Liver Stiffness less than 9 kPa): In the absence of other known clinical signs, rules out compensated advanced chronic liver disease. *Shear wave velocity between 1.7-2.1 m/s (Liver Stiffness 9-13 kPa): Suggestive of compensated advanced chronic liver disease but need further test for confirmation. *Shear wave velocity between 2.1-2.4 m/s (Liver Stiffness 13-17 kPa): Rules in compensated advanced chronic liver disease. *Shear wave velocity greater than 2.4 m/s (Liver Stiffness over 17 kPa): Suggestive of clinically significant portal hypertension. QUALITY OF DATA SET: *IQR/Median value equal or less than 0.15 implies a quality data set. *IQR/Median value over 0.15 implies a poor quality data set. SIGNIFICANT CHANGE FROM PRIOR EXAM: Significant change if liver stiffness measurement is 10% or greater from prior exam. OTHER CONSIDERATIONS: The stage of liver fibrosis may be overestimated in the setting of acute hepatitis, liver inflammation, elevated liver function tests, hepatic vascular congestion, obstructive cholestasis, non-fasting state, and infiltrative diseases such as amyloidosis and lymphoma. In some patients with NAFLD, the liver stiffness thresholds for compensated advanced chronic liver disease may be lower. In causes other than viral hepatitis and NAFLD, liver stiffness thresholds are not well established. Electronically signed by: Sarwat Pierson MD 01/02/2025 09:06 AM EDT RP Dictated By: Sarwat Pierson MD Signed By: <Electronically signed by Sarwat Pierson MD in OV> 01/02/25905 DD/ 0809 TD/TT: 01/02/25 0822 Gas Pit Worker: [place] [id number] Ultrasound Report Signed Patient: Luis Daniel Rendon MR#: [id number] : 1985 Acct:[id number] Age/Sex: 39 / F ADM Date: 01/02/25 Loc: HO.US Attending Dr: Sarwat Mena MD Ordering Physician: Sarwat Mena MD Date of Service: 01/02/25 Procedure(s): US abd omen comp w elastography Accession Number(s): [id number] cc: Kathryn Martino MD; Sarwat Mena MD EXAMINATION: US ABDO MEN COMPLETE WITH LIVER ELASTOGRAPHY HISTORY: HEP B TECHNIQUE: Real-time grayscale ultrasound imaging of the abdomen was performed and images were reviewed. COMPARISON: There ar e no prior studies for comparison. FINDINGS: Liver: The right lob e of the liver measures 12.9 cm in size. The left lobe of the liver me asures 0.6 cm in size. The liver demonstrates normal homogeneous e chotexture. No focal mass or intrahepatic biliary ductal dilatation is identified. There is normal hepatopedal flow in the portal vein. Ultrasound elastogra phy of the liver was performed with 10 separate measurements of the liver parenchyma with the patient in the supine position. Measuremen ts were obtained approximately 2 cm below Meredith's capsule an d perpendicular to the capsule. Images are of satisfactory quality. The median shear wav e velocity is 1.52 m/s. The interquartile ra nge/median (IQR/median) is 0.15. Gallbladder and bili luis felipe tree: The gallbladder is unremarkable, without evidence of calculi, wall thickening, or pericholecystic fluid. There is no sonographic Mu rphy sign. The common bile duct is normal in caliber measuring 4 mm. Kidneys: The right k idney measures 11.7 cm in length. The left kidney measures 10.4 cm in length. The kidneys are unremarkable, without evidence of masses, hydronephrosis, or calculi. Pancreas: The pancre atic head, neck, and body are unremarkable. The pancreatic tail is o bscured by bowel gas. Spleen: The spleen i s normal in size and contour, measuring 9.4 cm in length. Abdominal aorta and inferior vena cava: The visualized portions of the abdominal aorta and inferior vena cava are normal in caliber. There is no free flu id in the abdomen. U S/US abdomen comp w elastography IMPRESSION: Unremarkable abdomin al ultrasound. The median shear wav e velocity in the liver is 1.52 m/s, corresponding to a median liver st iffness of 7.0 kPa. The IQR/median value is 0.5. This is indicative o f a poor quality data set, and the estimated liver stiffness may be unreliable. Findings are indicat harleen of a low elastography value which rules out advanced chronic graciela er disease in asymptomatic patients. REFERENCE: Society of Radiologi sts in Ultrasound Liver Stiffness Thresholds (2020): LIVER STIFFNESS THRESHOLDS: *Shear wave velocity less than 1.3 m/s (Liver Stiffness equal or less than 5 kPa): High pr obability of being normal. *Shear wave velocity less than 1.7 m/s (Liver Stiffness less than 9 kPa): In the absence of other known clinical signs, rules out compensated advanced chronic liver disease. *Shear wave velocity between 1.7-2.1 m/s (Liver Stiffness 9-13 kPa): Suggestive of compen sated advanced chronic liver disease but need further test for confirmation. *Shear wave velocity between 2.1-2.4 m/s (Liver Stiffness 13-17 kPa): Rules in compensated advanced chronic liver disease. *Shear wave velocity greater than 2.4 m/s (Liver Stiffness over 17 kPa): Suggestive of clinically significant portal hypertension. QUALITY OF DATA SET: *IQR/Median value eq ual or less than 0.15 implies a quality data set. *IQR/Median value ov er 0.15 implies a poor quality data set. SIGNIFICANT CHANGE F ROM PRIOR EXAM: Significant change i f liver stiffness measurement is 10% or greater from prior exam. OTHER CONSIDERATIONS: The stage of liver f ibrosis may be overestimated in the setting of acute hepatitis, graciela er inflammation, elevated liver function tests, hepatic vascular con gestion, obstructive cholestasis, non-fasting state, and infiltrat harleen diseases such as amyloidosis and lymphoma. In some patients with N AFLD, the liver stiffness thresholds for compensated advanced chronic liver disease may be lower. In causes other than viral hep atitis and NAFLD, liver stiffness thresholds are not well established. Electronically zain d by: Sarwat Pierson MD 01/02/2025 09:06 AM EDT RP Dictated By: Sarwat Pierson MD Signed By: <Yuridia stephens signed by Sarwat Pierson MD in OV> 01/02/25 0906 DD/ 0809 TD/TT: 01/02/25 0822 Gas Pit Worker: Reason For Referral No Information Immunizations Vaccine [...] Interpretation Negative Section Notes: [place] Nonsmoker; no sig alcohol No substance abuse Came [place] in [place] Nonsmoker; no sig alcohol No substance abuse Problems Problem Type SNOMED Code ICD Code Onset Dates Problem Status W/U Status Risk Notes Problem Chronic type B viral hepatitis (30004930) Chronic hepatitis B (B18.1) Active confirmed Vital Signs Temperature 99.1 degrees Fahrenheit 03/27/2025 Blood pressure diastolic 01 mm Hg 03/27/2025 Height 5 ft 6 in in 03/27/2025 Blood pressure systolic 001 mm Hg 03/27/2025 Weight 182.4 lbs 03/27/2025 BMI 29.44 kg/m2 03/27/2025 Encounters Encounter Location Date Provider Diagnosis [facility] [address] [place] [address] 03/27/2025 Sarwat Mena Chronic hepatitis B B18.1 [facility] [address] [place] [address] 11/30/2024 Sarwat Mena Chronic hepatitis B B18.1 [facility] [address] [place] [address] 12/26/2024 Sarwat Wang [facility] [address] [place] [address] 01/09/2025 Sarwat Wang [facility] [address] [place] [address] 03/31/2025 Sarwat Mena Assessments Encounter Date Diagnosis (ICD Code) Assessment Notes Treatment Notes Treatment Clinical Notes Section Notes 03/27/2025 Chronic hepatitis B (ICD-10 - B18.1) Ask the VISUAL C DEVELOPER if treatment for the Hepatitis B with the medication Tenofovir would be OK for the baby. Ask them if treatment for the Hepatitis B is mandatory before getting , or would it be OK to start during the third trimester instead. Overall, Sophie currently appears well and certainly does not show any signs nor have any symptoms of chronic liver disease. We did have a lengthy and detailed discussion today regarding her chronic hepatitis B infection, indications for potential treatment, any further workup that is needed, and how her potential in vitro fertilization and would impact her treatment options as well. Putting aside the issue of potentially becoming through in vitro fertilization, I advised her that based on all of her laboratories and workup thus far she most likely falls into the category of a patient that does not really need to be treated given the normal LFTs, no sign of any liver disease, an already negative hepatitis B E antigen, and a relatively low hepatitis B viral DNA level. All of those aforementioned features indicate a low activity of the hepatitis B virus and therefore the benefits of treatment would be low in the sense of not really changing the ultimate outcome of the chronic hepatitis B infection. However, she does advise me that the physicians at the in vitro fertilization clinic have advised her that she would possibly need to be on treatment to suppress the virus prior to becoming . The goal of treatment would be to minimize the risk of transmission to the child at the time of delivery. We did review treatment options which would most likely be the medication tenofovir. She would have to clear the use of this medication with her VISUAL C DEVELOPER physician before becoming as well. Typically the medication would be started toward the third trimester, as opposed to being started before the , so as to be on board and suppressing the hepatitis B infection so as to minimize the risk of transmission during the delivery. We also reviewed that the baby will typically receive the Hepatitis B vaccine upon in this type of situation and that would also significantly reduce the risk of transmission of the Hepatitis B virus at the time of delivery. I advised her that typically I would not recommend a liver biopsy in her case given all of the laboratory results and ultrasound report that point toward normal liver function, what appears to be a relatively inactive hepatitis B infection, and no ongoing liver damage. However, I did advise her that in her case it would not be a bad idea to obtain a biopsy to definitively assess her liver histology and to definitively rule out any ongoing subclinical inflammation that could make a difference in treating her both in the short-term during the and long-term as well. She would also like to make sure that she is as healthy as possible in order to become . Therefore, I shall schedule her for an ultrasound-guided liver biopsy. In the meantime, I advised her to speak with the physicians at the fertility clinic so as to be sure they would not have a problem with her being on the hepatitis B antiviral agent during the early and latter phases of her . I also advised her to speak with them about whether or not they truly need her to be on the treatment before she becomes or whether we should just wait until the third trimester before the baby is born. I have given her an appointment to see me again in the early part of the Fall but will be in touch with her as to the results of the biopsy, as well as to potentially start her on the treatment for the hepatitis B infection at that point depending upon what advice she gets from the VISUAL C DEVELOPER doctors at the fertility clinic. I did advise her to contact me if she has any problems or questions I can be of assistance with in the interim. Of note, I did remind her to be sure to tell her that he should be checked to see his status of the hepatitis B infection and whether or not he would need to be vaccinated if he is negative for any chronic infection and does not already have a positive hepatitis B surface antibody. Sophie was comfortable with this plan. Thank you again for allowing me to participate in Sophie's care. I shall continue to keep you advised of her progress. 11/30/2024 Chronic hepatitis B (ICD-10 - B18.1) Plan Of Treatment Pending Test Test Name Order Date CHEM 7 PROFILE 11/30/2024 LIVER PROFILE 11/30/2024 LIVER PROFILE 03/27/2025 CBC w DIFF 11/30/2024 CBC w DIFF 03/27/2025 ALPHA-FETOPROTEIN,TUMOR MARKER HEPATITIS B GENOTYPE 11/30/2024 US LIVER BIOPSY CORE GUIDE 03/27/2025 Prothrombin Time INR 11/30/2024 Prothrombin Time INR 03/27/2025 Partial Thromboplastin Time 03/27/2025 Liver Fibrosis Pnl 11/30/2024 Hepatitis A Antibody IgG 11/30/2024 Hepatitis BE Antibody 11/30/2024 Hepatitis BE Antigen 11/30/2024 Hepatitis B Viral DNA Qn 11/30/2024 Hepatitis Delta Antibody 11/30/2024 US abdomen comp w elastography Hepatitis B Profile 11/30/2024 HIV Ab/Ag 11/30/2024 Hepatitis C Antibody Reflex 11/30/2024 Next Appt Details Provider Name:Sarwat Mena , 07/31/2025 01:20:00 PM, [address] [place] [address], [address], [place], [address], Insurance Providers Payer Name Payer Address Payer Phone Subscriber Number Group Number Insured Name Patient Relationship to Insured Coverage Start Date Coverage End Date [facility] [address] [place] [phone] [id number] SOPHIE RENDON Self - patient is the insured Medical (General) History Medical History History ICD Code Denies AR,DM,CVA,Lung disease,renal dise ase Chronic hepatitis B--her wor kup revealed a normal liver profile, normal abdominal ultrasound, normal alpha-fetoprotein level, positive hepatitis B surface antigen, a Hepatitis B Genotype A, negative hepatitis B E antigen and a positive hepatitis B E antibody, elevated hepatitis B DNA level of 2110, negative hepatitis C antibody, negative HIV, and a positive hepatitis A IgG antibody. She is being seen at the [facility] [place] for possible IVF treatments Surgical History Surgery Date(Month/Year)
== END 2025-04-03 14:04 | disposition home or self-care (01) ==
LOC: HO.LAB 14:03
PROVIDERS: PCP Internal Medicine; Visit Provider Internal Medicine
DX: N30.00 Acute cystitis without hematuria (principal); R30.0 Dysuria; R35.0 Frequency of micturition
CPT/HCPCS: 81001; 87086

== ENCOUNTER 2025-04-09 13:10 | Outpatient (REF) | payer OTHER, SELFPAY ==
[2025-04-09 13:19] LABS: MANUAL DIFF FLAG NO
[2025-04-09 13:35] LABS: Basophils Percent Auto 0.6 % (0-2); Eosinophils Absolute Auto 0.3 X10*3/uL (0.0-0.4); Eosinophils Percent Auto 7.3 % (0-4); Hematocrit 38.3 % (37.0-47.0); Imm Gran Abs Auto 0.01 X10*3/uL (0.00-0.03); Imm Gran Pct Auto 0.2 % (0.0-0.4); Lymphocytes Absolute Auto 1.9 X10*3/uL (1.2-4.9); Lymphocytes Percent Auto 40.8 % (20-40); Mean Corpuscular HGB Conc 31.3 g/dl (31.0-35.0); Mean Corpuscular Hemoglobin 26.4 pg (27.0-33.0); Mean Corpuscular Volume 84.2 fL (80.0-98.0); Mean Platelet Volume 10.4 fL (9.4-12.3); Monocytes Absolute Auto 0.3 X10*3/uL (0.1-1.2); Monocytes Percent Auto 6.8 % (2-11); Neutrophils Absolute Auto 2.1 x10*3/uL (2.0-8.3); Neutrophils Percent Auto 44.3 % (45-73); Platelet Count 232 X10*3/uL (160-400); Red Blood Count 4.55 X10*6/uL (4.20-5.50); White Blood Count 4.7 X10*3/uL (4.8-10.8)
[2025-04-09 13:44] LABS: Prothrombin Time 11.6 SEC (10.9-12.4)
[2025-04-09 13:47] LABS: Partial Thromboplastin Time 30.8 SEC (26.0-36.8)
[2025-04-09 14:12] LABS: Alanine Aminotransferase 25 U/L (0-31); Albumin Level 4.5 g/dL (3.5-5.0); Alkaline Phosphatase 48 U/L (39-117); Aspartate Amino Transferase 28 U/L (5-31); Bilirubin Direct 0.3 mg/dL (0.0-0.5); Bilirubin Total 0.9 mg/dL (0.0-1.0); Total Protein 7.9 g/dL (6.5-8.0)
--- OUTSIDE RECORDS SUMMARY | 2025-04-09 15:03 | XMS_ITS | Patient Health Record ---
Author Organization [facility] Address [address] [place] [address] Care Team Providers Care Skin Lifter Bacon Name Role Phone Kathryn Martino Primary Care Provider Unavailab Sarwat Yun [phone] Allergies No Known Allergies Results Component Value Reference Range Notes US abdomen comp w elastograp hy Reviewed date:01/09/2025 11:25:01 PM Interpretation: Performing Lab: Notes/Report: [address] [address] Ultrasound Report Signed Patient: Sophie Rendon MR#: [id number] : 1985 Acct:[id number] Age/Sex: 39 / F ADM Date: 01/02/25 Loc: HO.US Attending Dr: Sarwat Mena MD Ordering Physician: Sarwat Mena MD Date of Service: 01/02/25 Procedure(s): US abdomen comp w elastography Accession Number(s): [id number] cc: Kathryn Martino MD; Sarwat Mena MD [...] Sarwat Pierson MD in OV> 01/02/25905 DD/ 8 TD/TT: 01/02/25821 Machine Ii Engraver: Complete Blood Count Auto Di ff (Not yet reviewed by provider) Interpretation: Performing Lab:[facility], [address] [place] [phone] Notes/Report: White Blood Count 4.7 4.8-10.8 X10*3/uL Red Blood Count 4.55 4.20-5.50 X10*6/uL Hemoglobin 12.0 12.0-16.0 g/dl Hematocrit 38.3 37.0-47.0 % Mean Corpuscular Volume 84.2 80.0-98.0 fL Mean Corpuscular Hemoglobin 26.4 27.0-33.0 pg Mean Corpuscular HGB Conc 31.3 31.0-35.0 g/dl Red Cell Distribution Width 14.0 11.0-16.0 % Platelet Count 232 160-400 X10*3/uL Mean Platelet Volume 10.4 9.4-12.3 fL Neutrophils Percent Auto 44.3 45-73 % Imm Gran Pct Auto 0.2 0.0-0.4 % Lymphocytes Percent Auto 40.8 20-40 % Monocytes Percent Auto 6.8 2-11 % Eosinophils Percent Auto 7.3 0-4 % Basophils Percent Auto 0.6 0-2 % NRBC Pct Auto 0.0 0.0-0.2 /100WBC Neutrophils Absolute Auto 2.1 2.0-8.3 x10*3/u L Imm Gran Abs Auto 0.01 0.00-0.03 X10*3/uL Lymphocytes Absolute Auto 1.9 1.2-4.9 X10*3/u L Monocytes Absolute Auto 0.3 0.1-1.2 X10*3/uL Eosinophils Absolute Auto 0.3 0.0-0.4 X10*3/u L Basophils Absolute Auto 0.0 0.0-0.2 X10*3/uL NRBC Abs Auto 0.000 0.0-0.012 X10*3/uL Prothrombin Time INR (Not ye t reviewed by provider) Interpretation: Performing Lab:[address] [address] Notes/Report: Prothrombin Time 11.6 10.9-12.4 SEC INTERNATIONAL NORM RATIO 1.0 0.9-1.1 INTERNATIONAL NORMALIZED RATIO (INR) REFERENCE RANGES Reference Range For patients not on anticoagulant therapy: 0.9 - 1.1 INR ranges for oral anticoagulant therapy: For prevention and treatment of venous thrombosis and pulmonary embolism: 2.0 - 3.0 For acute myocardial infarction with aspirin therapy: 2.0 - 3.0 For acute myocardial infarction without aspirin therapy: 3.0 - 4.0 For patients with mechanical prosthetic heart valves: 2.5 - 3.5 Partial Thromboplastin Time (Not yet reviewed by provider) Interpretation: Performing Lab:[address] [address] Notes/Report: Partial Thromboplastin Time 30.8 26.0-36.8 SEC For information regarding the monitoring of direct thrombin inhibitors, please refer to Pharmacy. Liver Panel (Not yet reviewe d by provider) Interpretation: Performing Lab:[address] [address] Notes/Report: Bilirubin Total 0.9 0.0-1.0 mg/dL Bilirubin Direct 0.3 0.0-0.5 mg/dL Aspartate Amino Transferase 28 5-31 U/L Alanine Aminotransferase 25 0-31 U/L Total Protein 7.9 6.5-8.0 g/dL Albumin Level 4.5 3.5-5.0 g/dL Alkaline Phosphatase 48 39-117 U/L Reason For Referral No Information Immunizations Vaccine [...] Interpretation Negative Section Notes: Came from the [facility] in 2003 Nonsmoker; no sig alcohol No substance abuse Came from the [facility] in 2003 Nonsmoker; no sig alcohol No substance abuse Problems Problem Type SNOMED Code ICD Code Onset Dates Problem Status W/U Status Risk Notes Problem Chronic type B viral hepatitis (99621286) Chronic hepatitis B (B18.1) Active confirmed Vital Signs Temperature 99.1 degrees Fahrenheit 03/27/2025 Blood pressure diastolic 01 mm Hg 03/27/2025 Height 5 ft 6 in in 03/27/2025 Blood pressure systolic 001 mm Hg 03/27/2025 Weight 182.4 lbs 03/27/2025 BMI 29.44 kg/m2 03/27/2025 Encounters Encounter Location Date Provider Diagnosis [facility] [address] [place] [phone] 11/30/2024 Sarwat Mena Chronic hepatitis B B18.1 [facility] [address] [place] [phone] 03/27/2025 Sarwat Mena Chronic hepatitis B B18.1 [facility] [address] [place] [phone] 12/26/2024 Sarwat Mena [facility] [address] [place] [phone] 01/09/2025 Sarwat Mena [facility] [address] [place] [phone] 03/31/2025 Sarwat Mena Assessments Encounter Date Diagnosis (ICD Code) Assessment Notes Treatment Notes Treatment Clinical Notes Section Notes 11/30/2024 Chronic hepatitis B (ICD-10 - B18.1) 03/27/2025 Chronic hepatitis B (ICD-10 - B18.1) Ask the SPRAY RIG OPERATOR if treatment for the Hepatitis B with [...] the use of this medication with her SPRAY RIG OPERATOR physician before becoming as well. Typically the [...] upon what advice she gets from the SPRAY RIG OPERATOR doctors at the fertility clinic. I did [...] to keep you advised of her progress. Plan Of Treatment Pending Test Test Name Order Date CHEM 7 PROFILE 11/30/2024 LIVER PROFILE 11/30/2024 LIVER PROFILE 03/27/2025 CBC w DIFF 11/30/2024 CBC w DIFF 03/27/2025 ALPHA-FETOPROTEIN,TUMOR MARKER HEPATITIS B GENOTYPE 11/30/2024 US LIVER BIOPSY CORE GUIDE 03/27/2025 Complete Blood Count Auto Diff Prothrombin Time INR 04/09/2025 Prothrombin Time INR 11/30/2024 Prothrombin Time INR 03/27/2025 Partial Thromboplastin Time 04/09/2025 Partial Thromboplastin Time 03/27/2025 Liver Panel 04/09/2025 Liver Fibrosis Pnl 11/30/2024 Hepatitis A Antibody IgG 11/30/2024 Hepatitis BE Antibody 11/30/2024 Hepatitis BE Antigen 11/30/2024 Hepatitis B Viral DNA Qn 11/30/2024 Hepatitis Delta Antibody 11/30/2024 US abdomen comp w elastography Hepatitis B Profile 11/30/2024 HIV Ab/Ag 11/30/2024 Hepatitis C Antibody Reflex 11/30/2024 Next Appt Details Provider Name:Sarwat Mena , 07/31/2025 01:20:00 PM, [address], [address], [place], [address], Insurance Providers Payer Name Payer Address Payer Phone Subscriber Number Group Number Insured Name Patient Relationship to Insured Coverage Start Date Coverage End Date [facility] [address] [place] [phone] [id number] SOPHIE RENDON Self - patient is the [...] antibody. She is being seen at the [facility] in [place] for possible IVF treatments Surgical History Surgery Date(Month/Year)
== END 2025-04-09 13:11 | disposition home or self-care (01) ==
LOC: HO.LAB 13:10
PROVIDERS: PCP Internal Medicine; Visit Provider Internal Medicine
DX: B18.1 Chronic viral hepatitis B without delta-agent (principal)
CPT/HCPCS: 36415; 80076; 85025; 85610; 85730

== ENCOUNTER 2025-04-16 11:29 | Day surgery (SDC) | payer OTHER, SELFPAY ==
--- OUTSIDE RECORDS SUMMARY | 2025-04-05 09:44 | XMS_ITS | Patient Health Record ---
Author Organization [facility] Address [address] [place] [address] Care Team Providers Care Psychosocial Rehabilitation Counselor Name Role Phone Kathryn Martino Primary Care Provider Unavailab Sarwat Yun [phone] Allergies No Known Allergies Results Component Value Reference Range Notes US abdomen comp w elastograp hy Reviewed date:01/09/2025 11:25:01 PM Interpretation: Performing Lab: Notes/Report: [address] [address] Ultrasound Report Signed Patient: Sophie Rendon MR#: [id number] : 1985 Acct:[id number] Age/Sex: 39 / F ADM Date: 01/02/25 Loc: HO.US Attending Dr: Sarwat Mena MD Ordering Physician: Sarwat Mena MD Date of Service: 01/02/25 Procedure(s): US abdomen comp w elastography Accession Number(s): [id number] cc: Kathryn Martino MD; Sarwat Mena MD [...] OV> 01/02/259[address] DD/ 0809 TD/TT: 01/02/25 0822 Bobbin Stripper: [place] [id number] Ultrasound Report Signed Patient: Luis Daniel Rendon MR#: [id number] : 1985 Acct:[id number] Age/Sex: 39 / F ADM Date: 01/02/25 Loc: HO.US Attending Dr: Sarwat Mena MD Ordering Physician: Sarwat Mena MD Date of Service: 01/02/25 Procedure(s): US abd omen comp w elastography Accession Number(s): [id number] cc: Kathryn Martino MD; Sarwat Mena MD [...] 01/02/25 0906 DD/ 0809 TD/TT: 01/02/25 0822 Bobbin Stripper: Reason For Referral No Information Immunizations Vaccine [...] Interpretation Negative Section Notes: [place] Nonsmoker; no sig alcohol No substance abuse [place] Nonsmoker; no sig alcohol No substance abuse Problems Problem Type SNOMED Code ICD Code Onset Dates Problem Status W/U Status Risk Notes Problem Chronic type B viral hepatitis (77574969) Chronic hepatitis B (B18.1) Active confirmed Vital Signs Temperature 99.1 degrees Fahrenheit 03/27/2025 Blood pressure diastolic 01 mm Hg 03/27/2025 Height 5 ft 6 in in 03/27/2025 Blood pressure systolic 001 mm Hg 03/27/2025 Weight 182.4 lbs 03/27/2025 BMI 29.44 kg/m2 03/27/2025 Encounters Encounter Location Date Provider Diagnosis [facility] [address] [place] [address] 03/27/2025 Sarwat Mena Chronic hepatitis B B18.1 [facility] [address] [place] [address] 11/30/2024 Sarwat Mena Chronic hepatitis B B18.[facility] [address] [place] [address] 12/26/2024 Sarwat Wang [facility] [address] [place] [address] 01/09/2025 Sarwat Wang [facility] [address] [place] [address] 03/31/2025 Sarwat Mena Assessments Encounter Date Diagnosis (ICD Code) Assessment Notes Treatment Notes Treatment Clinical Notes Section Notes 03/27/2025 Chronic hepatitis B (ICD-10 - B18.1) Ask the OPERATIONS PROJECT MANAGER if treatment for the Hepatitis B with [...] the use of this medication with her OPERATIONS PROJECT MANAGER physician before becoming as well. Typically the [...] upon what advice she gets from the OPERATIONS PROJECT MANAGER doctors at the fertility clinic. I did [...] Provider Name:Sarwat Mena , 07/31/2025 01:20:00 PM, [address] [place] [address], [address], [place], [address], Insurance Providers Payer Name Payer Address Payer Phone Subscriber Number Group Number Insured Name Patient Relationship to Insured Coverage Start Date Coverage End Date [facility] [address] [place] [phone] [id number] SOPHIE RENDON Self - patient is the insured Medical (General) History Medical History History ICD Code Denies [place],DM,CVA,Lung disease,renal dise ase Chronic hepatitis B--her wor [...] antibody. She is being seen at the [facility] [place] for possible IVF treatments Surgical History Surgery Date(Month/Year)
[2025-04-16] VITALS (15 sets, daily range): BP systolic 108–145; BP diastolic 68–89; PULSE 81–107; RESP 14–21; TEMP 36.6–36.9; O2SAT 98–100; BMI 29.1
--- NOTE | ~2025-04-16 | US_ITS ---
Ultrasound-guided liver biopsy History: Hepatitis B Procedure: Ultrasound-guided liver biopsy Risks and benefits and possible complications were discussed with the patient and consent form was signed. The abdomen was prepped and draped in usual sterile fashion. 1% lidocaine was used for anesthesia. A 17-gauge coaxial needle was inserted through the skin and soft tissues and into the right lobe of the liver. A total of 3, 20-gauge cores were performed. Due to patient pain and discomfort, we ended the procedure. Permanent ultrasound images were archived. 2 Gelfoam torpedoes were inserted through the coaxial and administered into the biopsy tract and at the level of the capsule. The needle was then removed. The specimens were placed in formalin and sent to pathology. The patient tolerated the procedure well. The procedure was performed under moderate sedation with a dedicated nurse for monitoring of vital signs. The patient received Versed, and Fentanyl. Moderate sedation time: 27 min This procedure was performed by Robert Reilly NP, and directly supervised by Daniel Gage M.D.. US/US biopsy liver Impression: Ultrasound-guided liver biopsy Electronically signed by: Daniel Gage MD 04/22/2025 04:38 PM EDT
[2025-04-16 11:56] LABS: UPreg QC Valid YES
[2025-04-16 12:16] LABS: Anion Gap 11 (12-20); Blood Urea Nitrogen 12 mg/dL (9-16); Calcium 9.3 mg/dL (8.4-10.2); Carbon Dioxide 24 mmol/L (22-29); Chloride 107 mmol/L (96-108); Creatinine Clr Calc Pharmacy 114.7; Estimated Glomerular Filt Rate > 60; Potassium 3.6 mmol/L (3.3-5.1); Sodium 138 mmol/L (135-145)
[2025-04-16] MEDS: Lidocaine HCl 1 % MPF 30 ML VIAL SUBCUT (14:26)
== END 2025-04-16 16:50 | disposition home or self-care (01) ==
LOC: HO.SSS 11:29
PROVIDERS: Radiology Diagnostic Radiology; PCP Internal Medicine; Visit Provider Internal Medicine
DX: B18.1 Chronic viral hepatitis B without delta-agent (principal)
CPT/HCPCS: 36415; 47000; 76942; 80048; 81025; 88307; 88313; 99152; 99153; J2003; J2250; J2312; J3010

== ENCOUNTER → 2025-04-16 13:00 | Outpatient (BNV) | payer OTHER, SELFPAY | PROVIDERS: PCP Internal Medicine | DX: B18.1 Chronic viral hepatitis B without delta-agent (principal) | CPT/HCPCS: 47000; 76942 ==

== ENCOUNTER 2025-09-09 09:39 | Outpatient (REF) | payer OTHER, SELFPAY ==
--- OUTSIDE RECORDS SUMMARY | 2025-09-09 11:19 | XMS_ITS | Patient Health Record ---
Author Organization [facility] Address [address] [place] [address] Care Team Providers Care Pattern Wheel Maker Name Role Phone Kathryn Martino Primary Care Provider Unavailab Sarwat Yun [phone] Allergies No Known Allergies Results Component Value Reference Range Flag Notes Complete Blood Count Auto Di ff Reviewed date:04/15/2025 11:06:17 PM Interpretation: Performing Lab:[facility], [address] [place] [phone] Notes/Report: White Blood Count 4.7 4.8-10.8 X10*3/uL L Red Blood Count 4.55 4.20-5.50 X10*6/uL N Hemoglobin 12.0 12.0-16.0 g/dl N Hematocrit 38.3 37.0-47.0 % N Mean Corpuscular Volume 84.2 80.0-98.0 fL N Mean Corpuscular Hemoglobin 26.4 27.0-33.0 pg L Mean Corpuscular HGB Conc 31.3 31.0-35.0 g/dl N Red Cell Distribution Width 14.0 11.0-16.0 % N Platelet Count 232 160-400 X10*3/uL N Mean Platelet Volume 10.4 9.4-12.3 fL N Neutrophils Percent Auto 44.3 45-73 % L Imm Gran Pct Auto 0.2 0.0-0.4 % N Lymphocytes Percent Auto 40.8 20-40 % H Monocytes Percent Auto 6.8 2-11 % N Eosinophils Percent Auto 7.3 0-4 % H Basophils Percent Auto 0.6 0-2 % N NRBC Pct Auto 0.0 0.0-0.2 /100WBC N Neutrophils Absolute Auto 2.1 2.0-8.3 x10*3/uL N Imm Gran Abs Auto 0.01 0.00-0.03 X10*3/uL N Lymphocytes Absolute Auto 1.9 1.2-4.9 X10*3/uL N Monocytes Absolute Auto 0.3 0.1-1.2 X10*3/uL N Eosinophils Absolute Auto 0.3 0.0-0.4 X10*3/uL N Basophils Absolute Auto 0.0 0.0-0.2 X10*3/uL N NRBC Abs Auto 0.000 0.0-0.012 X10*3/uL N Prothrombin Time INR Reviewed date:04/15/2025 11:06:03 PM Interpretation: Performing Lab:[address] [address] Notes/Report: Prothrombin Time 11.6 10.9-12.4 SEC N INTERNATIONAL NORM RATIO 1.0 0.9-1.1 N INTERNATIONAL NORMALIZED RATIO (INR) REFERENCE RANGES Reference [...] valves: 2.5 - 3.5 Partial Thromboplastin Time Reviewed date:04/16/2025 10:44:25 PM Interpretation: Performing Lab:[address] [address] Notes/Report: Partial Thromboplastin Time 30.8 26.0-36.8 SEC N For information regarding the monitoring of direct thrombin inhibitors, please refer to Pharmacy. Liver Panel Reviewed date:04/16/2025 10:44:13 PM Interpretation: Performing Lab:[address] [address] Notes/Report: Bilirubin Total 0.9 0.0-1.0 mg/dL N Bilirubin Direct 0.3 0.0-0.5 mg/dL N Aspartate Amino Transferase 28 5-31 U/L N Alanine Aminotransferase 25 0-31 U/L N Total Protein 7.9 6.5-8.0 g/dL N Albumin Level 4.5 3.5-5.0 g/dL N Alkaline Phosphatase 48 39-117 U/L N Pathology (Not yet reviewed by provider) Interpretation: Performing Lab:[facility], [address] [place] [phone] Notes/Report: Ur Preg Test Reviewed date:04/16/2025 10:05:55 PM Interpretation: Performing Lab:[facility], [address] [place] [phone] Notes/Report: Urine NEGATIVE NEGATIVE This test was developed to detect early . False negative results may occur after the 5th - 7th week of when using this test method. If clinically indicated, consider a serum hCG. Basic Metabolic Panel Reviewed date:04/16/2025 10:05:46 PM Interpretation: Performing Lab:[facility], [address] [place] [phone] Notes/Report: Sodium 138 135-145 mmol/L N Potassium 3.6 3.3-5.1 mmol/L N Chloride 107 96-108 mmol/L N Carbon Dioxide 24 22-29 mmol/L N Anion Gap 11 12-20 L Blood Urea Nitrogen 12 9-16 mg/dL N Creatinine 0.71 0.5-1.4 mg/dL N Creatinine Clr Calc Pharmacy 114.7 Provided height and weight: 167.64 cm, 81.8 kg. eGFR (calculated from the MDRD study equation) and eCrCl (calculated from the Cockcroft-Gault equation) are based on different parameters and may not yield comparable results. If eCrCl result is absurd, please check patient's height/weight. Estimated Glomerular Filt Rate > 60 Chronic Kidney Disease: Estimated GFR < 60 mL/min/1.73m2 Severe Kidney Disease: Estimated GFR < 15 mL/min/1.73m2 Glucose Random 88 60-115 mg/dL N Calcium 9.3 8.4-10.2 mg/dL N US biopsy liver Reviewed date:04/23/2025 12:02:20 AM Interpretation: Performing Lab: Notes/Report: [address] [place] [address] Ultrasound Report Signed Patient: Sophie Rendon MR#: [id number] : 1985 Acct:[id number] Age/Sex: 39 / F ADM Date: 04/16/25 Loc: HO.SSS Attending Dr: Sarwat Mena MD Ordering Physician: Sarwat Mena MD Date of Service: 04/16/25 Procedure(s): US biopsy liver Accession Number(s): [id number] cc: Kathryn Martino MD; Sarwat Mena MD Ultrasound-guided liver biopsy History: Hepatitis B Procedure: Ultrasound-guided liver biopsy Risks and benefits and possible complications were discussed with the patient and consent form was signed. The abdomen was prepped and draped in usual sterile fashion. 1% lidocaine was used for anesthesia. A 17-gauge coaxial needle was inserted through the skin and soft tissues and into the right lobe of the liver. A total of 3, 20-gauge cores were performed. Due to patient pain and discomfort, we ended the procedure. Permanent ultrasound images were archived. 2 Gelfoam torpedoes were inserted through the coaxial and administered into the biopsy tract and at the level of the capsule. The needle was then removed. The specimens were placed in formalin and sent to pathology. The patient tolerated the procedure well. The procedure was performed under moderate sedation with a dedicated nurse for monitoring of vital signs. The patient received Versed, and Fentanyl. Moderate sedation time: 27 min This procedure was performed by Robert Reilly NP, and directly supervised by Daniel Gage M.D.. US/US biopsy liver Impression: Ultrasound-guided liver biopsy Electronically signed by: Daniel Gage MD 04/22/2025 04:38 PM EDT Dictated By: Robert Reilly NP Signed By: <Electronically signed by Robert Reilly in OV> 04/22/25 1638 <Electronically signed by Daniel Gage MD in OV> 04/22/25 1640 DD/ 1300 TD/TT: 04/16/25 1400 Health And Safety Inspector: US abdomen comp w elastograp hy Reviewed date:01/09/2025 11:25:01 PM Interpretation: Performing Lab: Notes/Report: [address] [address] Ultrasound Report Signed Patient: Sophie Rendon MR#: [id number] : 1985 Acct:[id number] Age/Sex: 39 / F ADM Date: 01/02/25 Loc: HO.US Attending Dr: Sarwat Mena MD Ordering Physician: Sarwat Mena MD Date of Service: 01/02/25 Procedure(s): US abdomen comp w elastography Accession Number(s): [id number] cc: Kathryn Martino MD; Sarwat Mena MD [...] of Radiologists in Ultrasound Liver Stiffness Thresholds (2019): LIVER STIFFNESS THRESHOLDS: *Shear wave velocity less [...] Sarwat Pierson MD 01/02/2025 09:06 AM EDT Dictated By: Sarwat Pierson MD Signed By: <Electronically signed by Sarwat Pierson MD in OV> 01/02/25905 DD/ 8 TD/TT: 01/02/25 08 Health And Safety Inspector: Reason For Referral No Information Medications Medication SIG (Take, Route, Frequency, Duration) Notes Start Date End Date Status Magnesium 300 MG Capsule 1 capsule with a meal Orally Once a day; Duration: 30 day(s) 07/31/2025 Active Vitamin C 500 MG Capsule as directed Orally 2024 Active Multi Vitamin - Tablet 1 tablet Orally O nce a day; Duration: 30 day(s) 07/31/2025 Active Vit w/ Fe Bisg-FA 29-1 MG Tablet 1 tablet Orally Once a day; Duration: 30 day(s) 07/31/2025 Active Zinc 100 MG Tablet 1 tablet Orally Once a day; Duration: 30 day(s) 07/31/2025 Active Immunizations Vaccine Route Administration Date Status Comme nts Influenza Unknown 11/30/2024 Refused Influenza Unknown 07/31/2025 Refused Social History Tobacco Use: Social History Observation Description Date Details (start date - stop date) Never Smoker NA - NA Social History Drugs/Alcohol: Social Info Question Answer Notes Alcohol Screen Did you have a drink containing alcohol in the past year? 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 [employer] Section Notes: Came [place] in [place] Nonsmoker; no sig alcohol No substance abuse Came from [place] in [place] Nonsmoker; no sig alcohol No substance abuse Came from [place] in 2003 Nonsmoker; no sig alcohol No substance abuse Problems Problem Type SNOMED Code ICD Code Onset Dates Problem Status W/U Status Risk Notes Problem Chronic type B viral hepatitis (70306332) Chronic hepatitis B (B18.1) Active confirmed Vital Signs Temperature 96.8 degrees Fahrenheit 07/31/2025 Blood pressure diastolic 01 mm Hg 07/31/2025 Height 5 ft 6 in in 07/31/2025 Blood pressure systolic 001 mm Hg 07/31/2025 Weight 184 lbs 07/31/2025 BMI 29.7 kg/m2 07/31/2025 Encounters Encounter Location Date Provider Diagnosis [facility] [address] [place] [phone] 11/30/2024 Sarwat Mena Chronic hepatitis B B18.1 [facility] [address] [place] [phone] 03/27/2025 Sarwat Mena Chronic hepatitis B B18.1 [facility] [address] [place] [address] 07/31/2025 Sarwat Mena Chronic hepatitis B B18.1 [facility] [address] [place] [address] 12/26/2024 Sarwat Mena [facility] [address] [place] [address] [facility]/09[facility]20[facility] [address] [place] [address] 03/31/2025 Sarwat Mena Assessments Encounter Date Diagnosis (ICD Code) Assessment Notes Treatment Notes Treatment Clinical Notes Section Notes 11/30/2024 Chronic hepatitis B (ICD-10 - B18.1) 03/27/2025 Chronic hepatitis B (ICD-10 - B18.1) Ask the CHIEF DISPATCHER SERVICE if treatment for the Hepatitis B with [...] the use of this medication with her CHIEF DISPATCHER SERVICE physician before becoming as well. Typically the [...] upon what advice she gets from the CHIEF DISPATCHER SERVICE doctors at the fertility clinic. I did [...] to keep you advised of her progress. 07/31/2025 Chronic hepatitis B (ICD-10 - B18.1) Ask the CHIEF DISPATCHER SERVICE if treatment for the Hepatitis B with the medication Tenofovir would be OK for the baby. Ask them if treatment for the Hepatitis B is mandatory before getting , or would it be OK to start during the third trimester instead. Also, please get me the name, address, phone number, and fax number of the doctor so I can speak with them and I can send my notes also. Overall, Sophie continues to appear quite well and does not show any signs or describe any symptoms of liver disease. Her clinical exam and laboratories are unremarkable. The recent liver biopsy was also reassuring. At this point I do not think she needs to be treated for the chronic hepatitis B other than if and when she becomes so as to try to protect the from mason the virus upon delivery. As such, her next step will be to contact the in vitro fertilization clinic to reestablish contact with them and to decide about becoming . Once she makes contact with them she will give me the information regarding the physician there such that I can speak with them and decide about the treatment option of treating her for hepatitis B at the very beginning of the or simply toward the latter part so as to try to prevent transmission of the virus to the . I have given her an appointment to see me again in 6 months but did advise her to contact me in the interim regarding the potential plans of becoming such that I can then decide about when to start treatment for the chronic hepatitis B infection after discussion with the physician at the in vitro fertilization clinic. Sophie was comfortable with this plan. Thank you again for allowing me to participate in Sophie's care. I shall continue to keep you advised of her progress. Plan Of Treatment Pending Test Test Name Order Date CHEM 7 PROFILE 11/30/2024 LIVER PROFILE 11/30/2024 LIVER PROFILE 03/27/2025 CBC w DIFF 03/27/2025 CBC w DIFF 11/30/2024 ALPHA-FETOPROTEIN,TUMOR MARKER HEPATITIS B GENOTYPE 11/30/2024 US LIVER BIOPSY CORE GUIDE 03/27/2025 Prothrombin Time INR 03/27/2025 Prothrombin Time INR 11/30/2024 Partial Thromboplastin Time 03/27/2025 Liver Fibrosis Pnl 11/30/2024 Hepatitis A Antibody IgG 11/30/2024 Hepatitis BE Antibody 11/30/2024 Hepatitis BE Antigen 11/30/2024 Hepatitis B Viral DNA Qn 11/30/2024 Hepatitis Delta Antibody 11/30/2024 Pathology 04/16/2025 US abdomen comp w elastography Hepatitis B Profile 11/30/2024 HIV Ab/Ag 11/30/2024 Hepatitis C Antibody Reflex 11/30/2024 Next Appt Details Provider Name:Sarwat Mena , 01/29/2026 01:20:00 PM, [address], [address], [place], [address], Insurance Providers Payer Name Payer Address Payer Phone Subscriber Number Group Number Insured Name Patient Relationship to Insured Coverage Start Date Coverage End Date [facility] [address] [place] [phone] [id number] SOPHIE RENDON Self - patient is the insured Medical (General) History Medical History History ICD Code Denies UT,DM,CVA,Lung disease,renal dise ase Chronic hepatitis B- her wor kup revealed a normal liver profile, normal abdominal ultrasound, normal alpha-fetoprotein level, positive hepatitis B surface antigen, a Hepatitis B Genotype A, negative hepatitis B E antigen and a positive hepatitis B E antibody, elevated hepatitis B DNA level of 2110, negative hepatitis C antibody, negative HIV, and a positive hepatitis A IgG antibody. She is being seen at the [facility] in [place] for possible IVF treatments- - [facility], Dr. Adali Oliva Liver biopsy in 04/2025-limit ed specimen but no obvious fibrosis or significant inflammation Surgical History Surgery Date(Month/Year)
[2025-09-12 04:09] LABS: TS Negative Control Passed; TS Panel A 6; TS Panel B 0; TS Positive Control Passed; TSpotTB Borderline (Negative)
== END 2025-09-09 09:40 | disposition home or self-care (01) ==
LOC: HO.LAB 09:39
PROVIDERS: PCP Internal Medicine; Visit Provider Internal Medicine
DX: Z11.1 Encounter for screening for respiratory tuberculosis (principal)
CPT/HCPCS: 36415; 86481